=== PATIENT | female | born 1975 | race American Indian/Alaskan Native ===

== ENCOUNTER 2017-11-19 12:39 | Emergency (ER) | payer OTHER ==
[2017-11-19 12:57] VITALS: BP 144/100
[2017-11-19] MEDS ORDERED: ZOFRAN IV ONE (13:14)
[2017-11-19] MEDS ORDERED: BENADRYL IV ONE (13:14)
--- NOTE | 2017-11-19 13:19 | Emergency Department Report ---
ED General Adult HPI - General Chief complaint: Shoulder Injury Stated complaint: RIGHT SHOULDER PAIN Time Seen by Provider: 11/19/17 13:10 Source: patient Mode of arrival: Ambulatory Limitations: No Limitations - History of Present Illness Initial comments: Patient is 42 years old female history of multiple sclerosis presented today with right shoulder pain started this morning, patient stated that she is unable to move her shoulder. Patient denied any fever, no recent trauma. Patient does have history of epilepsy but denied any seizure in the last few days. No other complaints. - Related Data Allergies Allergy/AdvReac Type Severity Reaction Status Date / Time No Known Allergies Allergy Verified 11/19/17 12:50 ED Review of Systems ROS: Stated complaint: RIGHT SHOULDER PAIN Other details as noted in HPI Comment: All other systems reviewed and negative Constitutional: denies: chills, fever Respiratory: denies: cough, shortness of breath, wheezing Cardiovascular: denies: chest pain, palpitations, dyspnea on exertion, edema, syncope Gastrointestinal: denies: abdominal pain, nausea, vomiting, diarrhea, constipation, hematemesis, hematochezia Musculoskeletal: denies: back pain, joint swelling Neurological: denies: headache, weakness, numbness, paresthesias ED Past Medical Hx - Past Medical History Hx Seizures: Yes Additional medical history: MS, epilepsy - Surgical History Past Surgical History?: No - Social History Smoking Status: Current Every Day Smoker Substance Use Type: None ED Physical Exam - General Limitations: No Limitations General appearance: in distress - Head Head exam: Present: atraumatic, normocephalic, normal inspection - Eye Eye exam: Present: normal appearance, PERRL - ENT ENT exam: Present: normal exam, normal orophraynx - Neck Neck exam: Present: normal inspection, full ROM. Absent: tenderness, meningismus, lymphadenopathy, thyromegaly - Respiratory Respiratory exam: Present: normal lung sounds bilaterally. Absent: respiratory distress, wheezes, rales, rhonchi, chest wall tenderness, accessory muscle use, decreased breath sounds, prolonged expiratory - Cardiovascular Cardiovascular Exam: Present: regular rate, normal rhythm, normal heart sounds - GI/Abdominal GI/Abdominal exam: Present: soft, normal bowel sounds. Absent: distended, tenderness, guarding, rebound, rigid, organomegaly, mass, bruit, pulsatile mass , hernia - Extremities Exam Extremities exam: Present: tenderness, normal capillary refill, other. Absent: pedal edema, calf tenderness - Expanded Upper Extremity Exam Right Shoulder Exam: Present: tenderness. Absent: full ROM, swelling, abrasion, laceration, ecchymosis, deformity, crepidus, dislocation, erythema, tenderness over AC joint Upper Arm exam: Present: normal inspection, full ROM Elbow exam: Present: normal inspection, full ROM. Absent: tenderness Forearm Wrist exam: Present: normal inspection, full ROM. Absent: tenderness ED Course Vital Signs 11/19/17 12:52 Temperature 98.5 F Pulse Rate 73 Respiratory 16 Rate Blood Pressure 144/100 O2 Sat by Pulse 95 Oximetry - Reevaluation(s) Reevaluation #1: 11/19/17 15:15 Patient stated that she is feeling much better, her pains completely resolved. Sent in from about her possible diagnosis of wing scapula in the need to follow- up with an orthopedic doctor. I gave her Dr. Garza to follow-up with. ED Medical Decision Making - Radiology Data Radiology results: report reviewed Referring Physician: MARTIN CAO Patient Name: LOS HANNA Date of : 1975 Sex: Female Report Date: 2017-11-19 Report Status: [place] [id number] XRay Report Signed Patient: LOS HANNA MR#: [id number] : 1975 Acct:[id number] Age/Sex: 42 / F ADM Date: 11/19/17 Loc: ED Attending Dr: Ordering Physician: MARTIN CAO Date of Service: 11/19/17 Procedure(s): XR shoulder 2+V RT Accession Number(s): [id number] cc: MARTIN CAO Fluoro Time In Minutes: FINAL REPORT EXAM: XR SHOULDER 2+V RT HISTORY: R shoulder pain TECHNIQUE: Two views of the right shoulder PRIORS: None. FINDINGS: The scapula appears superiorly elevated and rotated. No acute fractures are identified. No evidence for AC joint widening. Glenohumeral joint space is within limits. IMPRESSION: Superior elevation of the scapula may reflect winged scapula Transcribed By: YOSELIN Dictated By: INDIRA REBOLLEDO MD Electronically Authenticated By: INDIRA REBOLLEDO MD Signed Date/Time: 11/19/171046 DD/ 46 TD/TT: 11/19/171046 Critical care attestation.: If time is entered above; I have spent that time in minutes in the direct care of this critically ill patient, excluding procedure time. ED Disposition Clinical Impression: Shoulder pain, Winged scapula of right side Disposition: - TO HOME OR SELFCARE Is pt being admited?: No Condition: Stable Instructions: Shoulder Sprain (ED) Referrals: JOE GARZA MD [Staff Physician] - 3-5 Days
[2017-11-19] MEDS: SUBLIMAZE IV ONE ×2 (14:21→14:25)
--- NOTE | 2017-11-19 14:50 | XRay Report ---
FINAL REPORT EXAM: XR SHOULDER 2+V RT HISTORY: R shoulder pain TECHNIQUE: Two views of the right shoulder PRIORS: None. FINDINGS: The scapula appears superiorly elevated and rotated. No acute fractures are identified. No evidence for AC joint widening. Glenohumeral joint space is within limits. IMPRESSION: Superior elevation of the scapula may reflect winged scapula
== END 2017-11-19 15:52 | disposition home or self-care (01) ==
LOC: ED 12:39
DX: M95.8 Other specified acquired deformities of musculoskeletal system (principal); G35 Multiple sclerosis; G40.909 Epilepsy, unspecified, not intractable, without status epilepticus; F17.200 Nicotine dependence, unspecified, uncomplicated
CPT/HCPCS: 73030; 96374; 96375; 99283; J1200; J2405; J2930; J3010